=== PATIENT | female | born 1995 ===

== ENCOUNTER → 2022-03-23 | Emergency (ER) | payer MEDICAID ==
[~2022-03-23] VITALS: Ht 172.7 cm; Wt 81.0 kg
[2022-03-23 08:54] VITALS: BP 129/84
== END | disposition left against medical advice (07) ==
LOC: ER 08:18
DX: R60.9 Edema, unspecified (principal); Z53.21 Procedure and treatment not carried out due to patient leaving prior to being seen by health care provider